=== PATIENT | female | born 1935 | race Hispanic/Latino ===

== ENCOUNTER 2017-10-23 21:33 | Emergency (ER) | payer MEDICARE ==
[~2017-10-23] VITALS: Ht 152.4 cm; Wt 54.4 kg
== END 2017-10-23 22:05 | disposition home or self-care (01) ==
LOC: ER 21:33
DX: Z77.098 Contact with and (suspected) exposure to other hazardous, chiefly nonmedicinal, chemicals (principal); I10 Essential (primary) hypertension
CPT/HCPCS: 99282